=== PATIENT | male | born 1955 | race Caucasian/White ===

== ENCOUNTER → 2017-03-29 12:57 | Outpatient (CLI) | payer SELFPAY | PROVIDERS: Family Provider Family Medicine; PCP Family Medicine; Visit Provider Orthopaedic Surgery | DX: Z01.818 Encounter for other preprocedural examination (principal) ==

== ENCOUNTER → 2019-07-13 11:42 | Outpatient (CLI) | payer SELFPAY ==
[2019-07-13 15:12] LABS: Absolute Lymphocyte Count 1.76 X10^3/uL (0.83-4.51); Absolute Neutrophil Count 2.4 X10^3/uL (2.0-7.7); Basophil# 0.03 X10^3/uL; Basophil% 0.6 % (0-1); Eosinophils% 2.1 % (0-5); Hematocrit 51.5 % (40-54); Hemoglobin 16.6 g/dL (13.0-16.5); Lymphocyte # 1.76 X10^3/ul (4.0); Lymphocyte % 37.4 % (19-41); Mean Corp Hgb Conc 32.2 g/dL (32-36); Mean Corpuscular Hgb 28.5 pg (27.0-32.0); Mean Corpuscular Volume 88.3 fL (80-94); Mean Platelet Vol. 12.2 fl (6.2-12.0); Monocyte# 0.38 X10^3/uL; Monocyte% 8.1 % (0-10); NRBC Flagged by Analyzer 0 % (0-5); Neutrophil # 2.43 X10^3/uL (2.7-7.7); Neutrophil % 51.6 % (47-70); Platelet Count 185 K/mm3 (150-450); RBC Distribution Width CV 13.1 % (11.6-14.6); RBC Distribution Width SD 42.2 fl (35.1-43.9); Red Blood Count 5.83 M/mm3 (4.6-6.2); White Blood Count 4.7 K/mm3 (4.4-11.0)
[2019-07-13 15:24] LABS: ALB/GLOB Ratio 1.2 RATIO (0.9-2.4); AST(SGOT) 22 U/L (15-37); Alanine Aminotransfer ALT/SGPT 37 U/L (16-61); Albumin, Serum 4.1 g/dL (3.2-5.0); Alkaline Phosphatase 56 U/L (45-117); Anion Gap 8 (5-15); BUN 13 mg/dL (7-18); BUN/Creat Ratio 13.5 RATIO (10-20); Calcium,Total 9.1 mg/dL (8.5-10.1); Chloride 108 mmol/L (98-107); Cholesterol 190 mg/dL (200); Creatinine, Serum 0.96 mg/dL (0.70-1.30); EST Glomerular Filtration Rate 83 mL/min (>60); Est Glom Filt Rate - Afr Amer 101 mL/min (>60); Globulin 3.4 g/dL (2.2-4.2); Glucose 99 mg/dL (74-106); High Density Lipoprotein 38 mg/dL; Potassium 4.1 mmol/L (3.5-5.1); Protein, Total 7.5 g/dL (6.4-8.2); Sodium Level 142 mmol/L (136-145); Triglycerides 145 mg/dL; Uric Acid 7.7 mg/dL (3.5-7.2); Very Low Density Lipoprotein 29 mg/dL (5-40)
[2019-07-13 15:30] LABS: Hemoglobin A1c 5.5 % (3.8-5.6)
[2019-07-13 16:00] LABS: Vitamin D,25 Hydroxy 29.1 ng/mL
[2019-07-16 00:17] LABS: SAR-COV-2 IGG ANTIBODY Positive (Negative)
== END ==
PROVIDERS: PCP Family Medicine; Visit Provider Family Medicine
DX: U07.1 COVID-19 (principal); I25.10 Atherosclerotic heart disease of native coronary artery without angina pectoris; I10 Essential (primary) hypertension; K75.81 Nonalcoholic steatohepatitis (NASH); R73.01 Impaired fasting glucose
CPT/HCPCS: 80053; 80061; 82306; 83036; 84550; 85025; 86769; G2023

== ENCOUNTER → 2020-08-22 08:53 | Outpatient (CLI) | payer MEDICARE, BC, SELFPAY ==
[2017-03-08 09:44] VITALS: BMI 34.4
[2020-08-22 10:02] LABS: Absolute Lymphocyte Count 1.64 X10^3/uL (0.83-4.51); Absolute Neutrophil Count 3.2 X10^3/uL (2.0-7.7); Basophil# 0.03 X10^3/uL; Basophil% 0.6 % (0-1); Eosinophil# 0.09 X10^3/uL; Eosinophils% 1.7 % (0-5); Hematocrit 50.4 % (40-54); Hemoglobin 16.5 g/dL (13.0-16.5); Lymphocyte # 1.64 X10^3/ul (0.83-4.51); Lymphocyte % 30.4 % (19-41); Mean Corp Hgb Conc 32.7 g/dL (32-36); Mean Corpuscular Hgb 29.4 pg (27.0-32.0); Mean Corpuscular Volume 89.8 fL (80-94); Mean Platelet Vol. 11.4 fl (6.2-12.0); Monocyte# 0.44 X10^3/uL; Monocyte% 8.2 % (0-10); NRBC Flagged by Analyzer 0 % (0-5); Neutrophil # 3.18 X10^3/uL (2.7-7.7); Neutrophil % 58.9 % (47-70); Platelet Count 162 K/mm3 (150-450); RBC Distribution Width CV 12.8 % (11.6-14.6); RBC Distribution Width SD 42.5 fl (35.1-43.9); Red Blood Count 5.61 M/mm3 (4.6-6.2); White Blood Count 5.4 K/mm3 (4.4-11.0)
[2020-08-22 10:53] LABS: ALB/GLOB Ratio 1.3 RATIO (0.9-2.4); AST(SGOT) 26 U/L (15-37); Alanine Aminotransfer ALT/SGPT 38 U/L (16-61); Albumin, Serum 4.1 g/dL (3.2-5.0); Alkaline Phosphatase 61 U/L (45-117); Anion Gap 6 (5-15); BUN 18 mg/dL (7-18); BUN/Creat Ratio 17.3 RATIO (10-20); Calcium,Total 9.2 mg/dL (8.5-10.1); Chloride 109 mmol/L (98-107); Cholesterol 197 mg/dL (200); Creatinine, Serum 1.04 mg/dL (0.70-1.30); EST Glomerular Filtration Rate 76 mL/min (>60); Est Glom Filt Rate - Afr Amer 92 mL/min (>60); Globulin 3.2 g/dL (2.2-4.2); Glucose 101 mg/dL (74-106); High Density Lipoprotein 42 mg/dL; Potassium 4.1 mmol/L (3.5-5.1); Protein, Total 7.3 g/dL (6.4-8.2); Sodium Level 141 mmol/L (136-145); Triglycerides 188 mg/dL; Very Low Density Lipoprotein 38 mg/dL (5-40)
== END ==
PROVIDERS: PCP Family Medicine; Referring Provider Family Medicine; Visit Provider Family Medicine
DX: E78.5 Hyperlipidemia, unspecified (principal); I10 Essential (primary) hypertension; K75.81 Nonalcoholic steatohepatitis (NASH)
CPT/HCPCS: 36415; 80053; 80061; 85025

== ENCOUNTER 2022-06-23 07:40 | Outpatient (CLI) | payer MEDICARE, BC, SELFPAY ==
[2022-06-23 10:38] LABS: Absolute Lymphocyte Count 2.13 X10^3/uL (0.83-4.51); Absolute Neutrophil Count 2.7 X10^3/uL (2.0-7.7); Basophil# 0.05 X10^3/uL; Basophil% 0.9 % (0-1); Eosinophil# 0.18 X10^3/uL; Eosinophils% 3.2 % (0-5); Hematocrit 52.7 % (40-54); Hemoglobin 17.2 g/dL (13.0-16.5); Lymphocyte # 2.13 X10^3/ul (0.83-4.51); Lymphocyte % 38.3 % (19-41); Mean Corp Hgb Conc 32.6 g/dL (32-36); Mean Corpuscular Hgb 28.7 pg (27.0-32.0); Mean Corpuscular Volume 87.8 fL (80-94); Monocyte# 0.48 X10^3/uL; Monocyte% 8.6 % (0-10); NRBC Flagged by Analyzer 0 % (0-5); Neutrophil % 48.6 % (47-70); Platelet Count 178 K/mm3 (150-450); RBC Distribution Width CV 13.4 % (11.6-14.6); White Blood Count 5.6 K/mm3 (4.4-11.0)
[2022-06-23 11:15] LABS: ALB/GLOB Ratio 1.1 RATIO (0.9-2.4); AST(SGOT) 24 U/L (15-37); Alanine Aminotransfer ALT/SGPT 43 U/L (16-61); Albumin, Serum 3.9 g/dL (3.2-5.0); Alkaline Phosphatase 77 U/L (45-117); Anion Gap 10 (5-15); BUN 15 mg/dL (7-18); BUN/Creat Ratio 14.9 RATIO (10-20); Calcium,Total 9.7 mg/dL (8.5-10.1); Chloride 106 mmol/L (98-107); Cholesterol 196 mg/dL (200); Creatinine, Serum 1.01 mg/dL (0.70-1.30); EST Glomerular Filtration Rate 78 mL/min (>60); Est Glom Filt Rate - Afr Amer 95 mL/min (>60); Globulin 3.5 g/dL (2.2-4.2); Glucose 105 mg/dL (74-106); High Density Lipoprotein 40 mg/dL; PSA,Total- Diagnostic 0.95 ng/mL (0.0-4.0); Potassium 4.3 mmol/L (3.5-5.1); Protein, Total 7.4 g/dL (6.4-8.2); Sodium Level 139 mmol/L (136-145); Thyroid Stim Hormone (TSH) 2.87 uIU/mL (0.358-3.74); Triglycerides 179 mg/dL; Uric Acid 8.3 mg/dL (3.5-7.2); Very Low Density Lipoprotein 36 mg/dL (5-40)
== END 2022-06-23 23:59 | disposition home or self-care (01) ==
PROVIDERS: PCP Nurse Practitioner Family; Referring Provider Nurse Practitioner Family; Visit Provider Nurse Practitioner Family
DX: Z00.00 Encounter for general adult medical examination without abnormal findings (principal); Z13.29 Encounter for screening for other suspected endocrine disorder; I25.10 Atherosclerotic heart disease of native coronary artery without angina pectoris; E78.5 Hyperlipidemia, unspecified; E29.1 Testicular hypofunction; M10.9 Gout, unspecified; R73.01 Impaired fasting glucose; Z12.5 Encounter for screening for malignant neoplasm of prostate
CPT/HCPCS: 36415; 80053; 80061; 84153; 84403; 84443; 84550; 85025

== ENCOUNTER → 2022-11-17 | Outpatient (CLI) | payer MEDICARE, BC, SELFPAY ==
--- NOTE | 2022-11-17 07:39 | US_ITS ---
EXAM: US ABDOMEN LIMITED, RIGHT UPPER QUADRANT CLINICAL INDICATION: ABNORMAL labs TECHNIQUE: Real-time ultrasound of the right upper quadrant with image documentation. COMPARISON: No relevant prior studies available. FINDINGS: LIVER: Liver echogenicity appears increased suggesting diffuse parenchymal liver disease, likely steatosis. No intrahepatic biliary ductal dilation. GALLBLADDER: Normal. No shadowing gallstone. No gallbladder wall thickening is demonstrated. No pericholecystic fluid. Negative sonographic Ariza''s sign. COMMON BILE DUCT: Unremarkable as visualized. The proximal common bile duct is normal size. PANCREAS: Unremarkable as visualized. No focal abnormality is demonstrated in the pancreas. No pancreatic ductal dilatation. RIGHT KIDNEY: 3 cm septated right renal cyst. There is no hydronephrosis. No shadowing calculus. US/Abdomen Limited IMPRESSION: Parenchymal liver disease. Normal gallbladder. Electronically Signed: Antoine العراقي MD at 11:04 EDT ,
== END | disposition home or self-care (01) ==
LOC: US 07:39
PROVIDERS: PCP Nurse Practitioner Family; Referring Provider Nurse Practitioner Family; Visit Provider Nurse Practitioner Family
DX: R94.5 Abnormal results of liver function studies (principal); K75.81 Nonalcoholic steatohepatitis (NASH)
CPT/HCPCS: 76705

== ENCOUNTER → 2023-02-17 | Outpatient (CLI) | payer MEDICARE, BC, SELFPAY ==
--- OUTSIDE RECORDS SUMMARY | 2023-02-17 08:12 | XMS RPT_ITS | CCD ---
Author Name Unknown Address [address] [facility] [address] [place] [address] Organization [facility] Care Team Providers Care Network Support Analyst Name Role Phone Susie Khan Vic Unavailable Unavailable Kassandra RICHARDS, Jemma Boateng Unavailable [phone] Kassandra RICHARDS, Jemma Boateng Unavailable [phone] Kassandra RICHARDS, Jemma Boateng Unavailable [phone] Penny Bowling Y Unavailable Unavailable LAHORRA, PASCUAL A Unavailable Unavailable FRANKLYN MCCORMACK Unavailable Unavailable LAHORRA, PASCUAL A Unavailable Unavailable LAHORRA, PASCAUL A Unavailable Unavailable LAHORRA, PASCUAL A Unavailable Unavailable LAHORRA, PASCUAL A Unavailable Unavailable LAHORRA, PASCUAL A Unavailable Unavailable MEGAN, ISACC Unavailable Unavailable GINA BABIN (PERFORMANCE REPORTER) Unavailable Unavailable TAMIE, ATA MCGRAW Unavailable Unavailable MOAMA YANEZIN (PERFORMANCE REPORTER) Unavailable Unavailable MOGINA YANEZ (PERFORMANCE REPORTER) Unavailable Unavailable TAMIE, ATA MCGRAW Unavailable Unavailable LAHORRA, PASCUAL A Unavailable Unavailable FRANKLYN MCCORMACK Unavailable Unavailable TAMIE, ATA Unavailable Unavailable LAHORRA, PASCUAL A Unavailable Unavailable TAMIE, ATA Unavailable Unavailable TAMIE, ATA Unavailable Unavailable LAHORRA, PASCUAL A Unavailable Unavailable TAMIE, ATA Unavailable Unavailable LAHORRA, PASCUAL A Unavailable Unavailable KAKARALA, ARYAN Unavailable Unavailable TAMIE, ATA Unavailable Unavailable LAHORRA, PASCUAL A Unavailable Unavailable LAHORRA, PASCUAL A Unavailable Unavailable LAHORRA, PASCUAL A Unavailable Unavailable MEGAN, ISACC Unavailable Unavailable TAMIE, ATA Unavailable Unavailable TAMIE, ATA Unavailable Unavailable MOUCK, GINA E Unavailable Unavailable TAMIE, ATA Unavailable Unavailable TAMIE, ATA Unavailable Unavailable MOUCK, GINA E Unavailable Unavailable TAMIE, ATA Unavailable Unavailable MOUCK, GINA E Unavailable Unavailable Penny Bowling Unavailable Unavailable Susie Khan Unavailable Unavailable Susie Khan Unavailable Unavailable Tamie GUADARRAMA, Ata Mcgraw Primary Care Provider Franklyn Mccormack Unavailable Medications Completed/Discontinued Medications Medication Drug Class(es) Dates Sig (Normalized) Sig (Original) aspirin 81 mg delayed release oral tablet (9 sources) Nonsteroidal Anti-inflammatory Drug Start: 06-10-2016 take 1 tablet by mouth once daily aspirin, enteric coated (ASPIRIN, ENTERIC COATED) 81 mg EC tablet Take 81 mg by mouth once daily. 0 06/10/2016 Active Problems Active Problems Problem Classification Problem Date Documented Da te Episodic/Chronic Coronary atherosclerosis and other heart disease (18 sources) Coronary arteriosclerosis; Translations: [Atherosclerotic heart disease of [place] coronary artery without angina pectoris] Onset: 06-09-2016 06-10-2016 Chronic Disorders of lipid metabolism (9 sources) Hyperlipidemia; Translations: [Hyperlipidemia, unspecified] Onset: 06-10-2016 06-10-2016 Chronic Essential hypertension (2 sources) Essential (primary) hypertension; Translations: [Benign essential hypertension] Onset: 01-27-2008 01-27-2008 Chronic Other endocrine disorders (1 source) Testicular hypofunction; Translations: [Testicular hypofunction] Onset: 01-27-2008 01-27-2008 Chronic Other nutritional; endocrine; and metabolic disorders (12 sources) Body mass index (BMI) 33.0-33.9, adult; Translations: [Body mass index (BMI) 31.0-31.9, adult] Onset: 06-10-2016 Resolved: 08-02-2016 08-02-2016 Chronic Other nutritional; endocrine; and metabolic disorders (2 sources) Body mass index (BMI) 31.0-31.9, adult; Translations: [Body mass index (BMI) 31.0-31.9, adult] Onset: 08-02-2016 08-02-2016 Chronic Other nutritional; endocrine; and metabolic disorders (1 source) Obesity; Translations: [Obesity, unspecified] Onset: 01-27-2008 01-27-2008 Chronic Other nutritional; endocrine; and metabolic disorders (1 source) Obese class II; Translations: [Obesity, unspecified] Onset: 12-15-2018 12-15-2018 Chronic Unclassified (1 source) Other injury of unspecified body region, subsequent encounter; Translations: [Other injury of unspecified body region, subsequent encounter] Onset: 04-22-2017 Unclassified (1 source) Unknown / UNK(Unknown) Onset: 04-02-2017 Past or Other Problems Problem Classification Problem Date Documented Da te Episodic/Chronic Complications of surgical procedures or medical care (1 source) Other postprocedural complications and disorders of respiratory system, not elsewhere classified; Translations: [Other postprocedural complications and disorders of respiratory system, not elsewhere classified] Onset: 03-29-2017 Episodic Coronary atherosclerosis and other heart disease (2 sources) Presence of aortocoronary bypass graft; Translations: [Presence of aortocoronary bypass graft] Onset: 03-29-2017 Episodic Diabetes mellitus without complication (1 source) Impaired fasting glycemia; Translations: [Impaired fasting glucose] Onset: 11-10-2009 02-09-2021 Episodic Medical examination/evaluation (1 source) Encounter for other preprocedural examination; Translations: [Encounter for other preprocedural examination] Onset: 03-21-2017 Episodic Other and unspecified benign neoplasm (1 source) Polyp of colon; Translations: [Polyp of colon] Onset: 11-10-2009 02-09-2021 Episodic Other circulatory disease (8 sources) Elevated blood-pressure reading without diagnosis of hypertension; Translations: [Elevated blood-pressure reading, without diagnosis of hypertension] Onset: 10-19-2009 10-19-2009 Episodic Other connective tissue disease (1 source) Pain in left arm; Translations: [Pain in left arm] Onset: 12-28-2018 12-28-2018 Episodic Residual codes; unclassified (1 source) Family history of ischemic heart disease and other diseases of the circulatory system; Translations: [Family history of other cardiovascular diseases] Onset: 01-27-2008 01-27-2008 Episodic Residual codes; unclassified (1 source) Impairment; Translations: [Other general symptoms and signs] Onset: 12-28-2018 12-28-2018 Episodic Skin and subcutaneous tissue infections (8 sources) Abscess of lower limb; Translations: [Cutaneous abscess of limb, unspecified] Onset: 10-19-2009 10-19-2009 Episodic Sprains and strains (1 source) Rupture of tendon of biceps; Translations: [Strain of muscle, fascia and tendon of other parts of biceps, left arm, subsequent encounter] Onset: 09-11-2018 12-28-2018 Episodic Results Test Name Value Interpretation Reference Range Facil ity Vital Signs Date Time Vital Sign Value Performing Clinician Philomena altamirano 08-02-2016 14:07-0400 Heart rate 52 /min [facility] Work Phone: 08-02-2016 13:42-0400 BMI (Body Mass Index) 31.99 kg/m2 [facility]ie [facility] Work Phone: 08-02-2016 13:42-0400 BP Diastolic 78 mm[Hg] Susie Bill [facility] Work Phone: 08-02-2016 13:42-0400 BP Systolic 114 mm[Hg] Susie Bill [facility] Work Phone: 08-02-2016 13:42-0400 Height 177.8 cm [facility]iecathy [facility] Work Phone: 08-02-2016 13:42-0400 Pulse (Heart Rate) 52 /min [facility]iecathy [facility] Work Phone: 08-02-2016 13:42-0400 Respiratory Rate 16 /min [facility]iecathy [facility] Work Phone: 08-02-2016 13:42-0400 Weight 101.15 kg Susiecathy [facility] Work Phone: 06-10-2016 14:13-0400 Heart rate 60 /min Thryvejasbir [facility] Work Phone: 06-10-2016 13:42-0400 BMI (Body Mass Index) 33.28 kg/m2 Thryvejasbir [facility] Work Phone: 06-10-2016 13:42-0400 BP Diastolic 78 mm[Hg] Thryveumi DeFinis [facility] Work Phone: 06-10-2016 13:42-0400 BP Systolic 110 mm[Hg] Thryveumi DeFinis [facility] Work Phone: 06-10-2016 13:42-0400 Pulse (Heart Rate) 56 /min Harjasbir DeFinis [facility] Work Phone: 06-10-2016 13:42-0400 Respiratory Rate 16 /min Harumi DeFinis [facility] Work Phone: 06-10-2016 13:42-0400 Weight 105.24 kg Harjasbir DeFinis [facility] Work Phone: 10-19-2009 10:50-0400 Body Temperature 99.1 [degF] Harjasbir DeFinis [facility] Work Phone: 10-19-2009 10:50-0400 Height 177.8 cm Harjasbir DeFinis [facility] Work Phone: Encounters Encounter Date Encounter Type Care Provider Facility Start: 07-09-2021 Admission to [facility] Rudi Mix MD, PhD Work Phone: Orthopaedics Procedures Date Procedure Procedure Detail Performing Clinician Start: 04-02-2017 History of coronary artery bypass grafting S/P CABG x 5 Rudi Mix MD, PhD Work Phone: Start: 08-02-2016 End: 08-02-2016 Dietary management education, guidance, and counseling Susie Khan Start: 08-02-2016 End: 08-02-2016 Follow Up Appt 6 months Franklyn Mccormack MD Start: 08-02-2016 End: 08-02-2016 PFM Franklyn Mccormack MD Start: 06-10-2016 End: 06-10-2016 Dietary management education, guidance, and counseling Penny Kaitlynnelizabeth Start: 06-10-2016 End: 06-10-2016 Electrocardiogram, complete Franklyn Mccormack MD Start: 06-10-2016 End: 07-06-2016 Follow Up Appt 6 weeks Franklyn Mccormack MD Start: 06-10-2016 End: 07-06-2016 PFM Franklyn Mccormack MD Start: 05-06-2008 Colonoscopy Rudi taylor MD, PhD Work Phone: Plan of Treatment Date Care Activity Detail Author Start: 12-15-2021 DIABETES SCREEN DIABETES SCREEN [facility] Start: 10-15-2021 Influenza vaccination INFLUENZA (Season Ended) [facility] Start: 02-14-2021 ADVANCE DIRECTIVE DISCUSSION ADVANCE DIRECTIVE DISCUSSION [facility] Start: 2020 PNEUMOCOCCAL: 65+ (1 - PCV) PNEUMOCOCCAL: 65+ (1 - PCV) [facility] Start: 01-26-2018 Urine microalbumin profile DTAP,TDAP,TD (2 - Td or Tdap) [facility] Start: 08-02-2016 End: 08-02-2016 Appointment Appointment [facility] Work Phone: Start: 08-02-2016 End: 08-02-2016 Follow Up Appt 6 months Follow Up Appt 6 months [facility] Work Phone: Start: 08-02-2016 End: 08-02-2016 PFM PF [facility] Work Phone: Start: 06-10-2016 End: 06-10-2016 Electrocardiogram, complete EKG (In office) [facility] Work Phone: Start: 06-10-2016 End: 07-06-2016 Follow Up Appt 6 weeks Follow Up Appt 6 weeks [facility] Work Phone: Start: 06-10-2016 End: 07-06-2016 PFM [employer] [facility] Work Phone: Start: 11-10-2014 LIPID SCREEN LIPID SCREEN [facility] Start: 11-10-2014 PROSTATE CANCER SCREENING DISCUSSION PROSTATE CANCER SCREENING DISCUSSION [facility] Start: 05-07-2011 Colonoscopy COLONOSCOPY [facility] Start: 05-07-2011 COLORECTAL CANCER SCREENING COLORECTAL CANCER SCREENING [facility] Start: 01-12-2011 SHINGRIX VACCINE (2 of 3) SHINGRIX VACCINE (2 of 3) [facility] Start: 11-10-2010 Hepatitis B surface antibody level LDL CHOLESTEROL [facility] Start: 2000 COLOGUARD (FIT-DNA) COLOGUARD (FIT-DNA) [facility] Start: [address] COLONOGRAPHY [facility] Start: 2000 FECAL OCCULT BLOOD FECAL OCCULT BLOOD [facility] Start: 2000 SIGMOIDOSCOPY SIGMOIDOSCOPY [facility] Start: 1973 ANNUAL PCP TEAM CHRONIC DISEASE VISIT ANNUAL PCP TEAM CHRONIC DISEASE VISIT [facility] Start: 1973 BP CONTROLLED (<130/80) BP CONTROLLED (<130/80) [facility] Start: 1973 HEPATITIS C SCREENING HEPATITIS C SCREENING [facility] Start: 1967 Adult depression screening assessment DEPRESSION SCREENING [facility] Start: 1960 COVID-19 VACCINE (#1) COVID-19 VACCINE (#1) [facility] Immunizations Immunization Date Immunization Notes Care Provider Fa cili 12-31-2010 influenza virus vaccine, unspecified formulation Rudi Mix MD, PhD Work Phone: [facility] Work Phone: 11-17-2010 zoster vaccine, live Rudi rosado MD, PhD Work Phone: [facility] Work Phone: 11-02-2008 influenza virus vaccine, unspecified formulation Rudi Mix MD, PhD Work Phone: [facility] Work Phone: 01-27-2008 tetanus toxoid, redu severiano diphtheria toxoid, and acellular pertussis vaccine, adsorbed Rudi Mix MD, PhD Work Phone: [facility] Work Phone: Social History Date Type Detail [facility] Start: 12-15-2018 Alcohol intake Current drinke r of alcohol (finding) [facility] Start: 1955 Sex Assigned At Not on file 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 Napoleon Morris II 1955, 63 year old, male Procedure(s): Left distal biceps tendon reconstruction with tendon allograft and lacertus fibrosus tenotomy Pre-op Diagnosis: Left distal biceps tendon rupture Post-op Diagnosis: Same Surgeon(s) and Role: * Rudi Mix - Primary * Ignacio Sharma - Fellow No Additional Staff Anesthesia: General Tourniquet: See anaesthesia note Specimens: None EBL: 0 ml Implanted tissues or devices: None Findings: Please see dictated operative note for details Complications: None Incision/Procedure Start Time: 8:50 AM Incision Close/Procedure End Time: 10:41 AM Operative Indicati (more content not included)... Additional Source Comments (unrecognized sect ion and content) No Status Records FoundNo Status Records FoundNo Status Records Found INFORMATION SOURCE (unrecogn ized section and content) DATE CREATED AUTHOR AUTHOR'S ORGANIZ ATION 08/05/2017 [facility] DATE CREATED AUTHOR AUTHOR'S ORGANIZ ATION 04/18/2019 [facility] Source Comments (unrecognize d section and content) In the event this informatio n is protected by the Federal Confidentiality of Alcohol and Drug Abuse Patient Records regulations: The Federal rules restrict any use of the information to criminally investigate or prosecute any alcohol or drug abuse patient.[facility] Teams (unrecognized sec tion and content) FOR RECORDS PERTAINING TO PATIENTS WHO ARE OR HAVE BEEN ENROLLED IN A CHEMICAL DEPENDENCY/SUBSTANCEABUSE PROGRAM, SOME INFORMATION MAY BE OMITTED. This clinical summary was aggregated from multiple sources. Caution should be exercised in using it in the provision of clinical care. This summary normalizes information from multiple sources, and as a consequence, information in this document may materially change the coding, format and clinical context of patient data. In addition, data may be omitted in some cases. CLINICAL DECISIONS SHOULD BE BASED ON THE PRIMARY CLINICAL RECORDS. [facility] [employer] [facility]. provides no warranty or guarantee of the accuracy or completeness of information in this document.
[2023-02-17 11:09] LABS: AST(SGOT) 21 U/L (15-37); Alanine Aminotransfer ALT/SGPT 35 U/L (16-61); Albumin, Serum 3.9 g/dL (3.2-5.0); Alkaline Phosphatase 66 U/L (45-117); Anion Gap 7 (5-15); BUN 18 mg/dL (7-18); Bilirubin, Direct 0.15 mg/dL (0.00-0.30); Calcium,Total 9.3 mg/dL (8.5-10.1); Chloride 107 mmol/L (98-107); Cholesterol 213 mg/dL (200); Creatinine, Serum 1.06 mg/dL (0.70-1.30); EST Glomerular Filtration Rate 74 mL/min (>60); Est Glom Filt Rate - Afr Amer 89 mL/min (>60); Globulin 3.3 g/dL (2.2-4.2); Glucose 104 mg/dL (74-106); High Density Lipoprotein 38 mg/dL; Potassium 4.2 mmol/L (3.5-5.1); Protein, Total 7.2 g/dL (6.4-8.2); Sodium Level 139 mmol/L (136-145); Thyroid Stim Hormone (TSH) 2.36 uIU/mL (0.358-3.74); Triglycerides 212 mg/dL; Very Low Density Lipoprotein 42 mg/dL (5-40)
== END | disposition home or self-care (01) ==
LOC: MTLAB 07:45
PROVIDERS: PCP Nurse Practitioner Family; Referring Provider Internal Medicine Cardiovascular Disease; Visit Provider Internal Medicine Cardiovascular Disease
DX: I25.10 Atherosclerotic heart disease of native coronary artery without angina pectoris (principal); E78.00 Pure hypercholesterolemia, unspecified
CPT/HCPCS: 36415; 80048; 80061; 80076; 84443

== ENCOUNTER → 2023-03-04 | Outpatient (CLI) | payer MEDICARE, BC, SELFPAY ==
--- OUTSIDE RECORDS SUMMARY | 2023-03-04 10:00 | XMS RPT_ITS | CCD ---
Author Name Unknown Address [address] [facility] [address] [place] [address] Organization [facility] Care Team Providers Care Bobcat Operator Name Role Phone Susie Khan Vic Unavailable Unavailable Kassandra RICHARDS, Jemma Boateng Unavailable Kassandra RICHARDS, Jemma Boateng Unavailable Kassandra RICHARDS, Jemma Boateng Unavailable [phone] Penny Bowling Y Unavailable Unavailable LAHORRA, PASCUAL A Unavailable Unavailable FRANKLYN MCCORMACK Unavailable Unavailable LAHORRA, PASCUAL A Unavailable Unavailable LAHORRA, PASCUAL A Unavailable Unavailable LAHORRA, PASCUAL A Unavailable Unavailable LAHORRA, PASCUAL A Unavailable Unavailable LAHORRA, PASCUAL A Unavailable Unavailable MEGAN, ISACC Unavailable Unavailable GINA BABIN (PORT CRANE OPERATOR) Unavailable Unavailable TAMIE, ATA MCGRAW Unavailable Unavailable MOAMA YANEZIN (PORT CRANE OPERATOR) Unavailable Unavailable MOGINA YANEZ (PORT CRANE OPERATOR) Unavailable Unavailable TAMIE, ATA MCGRAW Unavailable Unavailable [...] Coronary arteriosclerosis; Translations: [Atherosclerotic heart disease of [place] coronary artery without angina pectoris] Onset: 06-09-2016 [...] (Body Mass Index) 31.99 kg/m2 Susie Hou [employer] Work Phone: 08-02-2016 13:42-0400 BP [...] Phone: 06-10-2016 14:13-0400 Heart rate 60 /min Expert [employer]jas[employer] [facility] Work Phone: 06-10-2016 13:42-0400 BMI (Body Mass Index) 33.28 kg/m2 [employer] Hou [employer] Work Phone: 06-10-2016 13:42-0400 BP Diastolic 78 mm[Hg] Expert Dynamicsumi DeFinis [facility] Work Phone: 06-10-2016 13:42-0400 BP Systolic 110 mm[Hg] Expert [employer]umi DeFinis [facility] Work Phone: 06-10-2016 13:42-0400 Pulse (Heart Rate) 56 /min Harjasbir DeFinis [facility] Work Phone: 06-10-2016 13:42-0400 Respiratory Rate 16 /min Harumi DeFinis [facility] Work Phone: 06-10-2016 13:42-0400 Weight 105.24 kg Harjasbir DeFin[employer] [facility] Work Phone: 10-19-2009 10:50-0400 Body Temperature 99.1 [degF] Harjasbir DeFinis [facility] Work Phone: 10-19-2009 10:50-0400 Height 177.8 cm Harjasbir DeFinis [facility] Work Phone: Encounters Encounter Date Encounter Type Care Provider Facility Start: 07-09-2021 Admission to [facility] Rudi Mix MD, PhD Work Phone: Orthopaedics [...] Author Start: 12-15-2021 DIABETES SCREEN DIABETES SCREEN [facility] Start: 10-15-2021 Influenza vaccination INFLUENZA (Season Ended) [place] [facility] Start: 02-14-2021 ADVANCE DIRECTIVE DISCUSSION ADVANCE DIRECTIVE DISCUSSION [facility] Start: 2020 PNEUMOCOCCAL: 65+ (1 - PCV) PNEUMOCOCCAL: 65+ (1 - PCV) [facility] Start: 01-26-2018 Urine microalbumin profile DTAP,TDAP,TD (2 - Td or Tdap) [facility] Start: 08-02-2016 End: 08-02-2016 Appointment Appointment [facility] Work Phone: Start: 08-02-2016 End: 08-02-2016 Follow Up Appt 6 months Follow Up Appt 6 months [facility] Work Phone: Start: 08-02-2016 End: 08-02-2016 PFM PF [facility] Work Phone: Start: 06-10-2016 End: 06-10-2016 Electrocardiogram, complete EKG (In office) [facility] Work Phone: Start: 06-10-2016 End: 07-06-2016 Follow Up Appt 6 weeks Follow Up Appt 6 weeks [facility] Work Phone: Start: 06-10-2016 End: 07-06-2016 PFM PFFilmLoop [facility] Work Phone: Start: 11-10-2014 LIPID SCREEN LIPID SCREEN [facility] Start: 11-10-2014 PROSTATE CANCER SCREENING DISCUSSION PROSTATE CANCER SCREENING DISCUSSION [facility] Start: 05-07-2011 Colonoscopy COLONOSCOPY [facility] Start: 05-07-2011 COLORECTAL CANCER SCREENING COLORECTAL CANCER SCREENING [facility] Start: 01-12-2011 SHINGRIX VACCINE (2 of 3) SHINGRIX VACCINE (2 of 3) [facility] Start: 11-10-2010 Hepatitis B surface antibody level LDL CHOLESTEROL [facility] Start: 2000 COLOGUARD (FIT-DNA) COLOGUARD (FIT-DNA) [facility] Start: [address] COLONOGRAPHY [facility] Start: 2000 FECAL OCCULT BLOOD FECAL OCCULT BLOOD [facility] Start: 2000 SIGMOIDOSCOPY SIGMOIDOSCOPY [facility] Start: 1973 ANNUAL PCP TEAM CHRONIC DISEASE VISIT ANNUAL PCP TEAM CHRONIC DISEASE VISIT [facility] Start: 1973 BP CONTROLLED (<130/80) BP CONTROLLED (<130/80) [facility] Start: 1973 HEPATITIS C SCREENING HEPATITIS C SCREENING [facility] Start: 1967 Adult depression screening assessment DEPRESSION SCREENING [facility] Start: 1960 COVID-19 VACCINE (#1) COVID-19 VACCINE (#1) [facility] Immunizations Immunization Date Immunization Notes Care Provider Fa cili 12-31-2010 influenza virus vaccine, unspecified formulation Rudi Mix MD, PhD Work Phone: [facility] Work Phone: 11-17-2010 zoster vaccine, live Rudi rosado MD, PhD Work Phone: [facility] Work Phone: 11-02-2008 influenza virus vaccine, unspecified formulation Rudi Mix MD, PhD Work Phone: [facility] Work Phone: 01-27-2008 tetanus toxoid, redu severiano diphtheria toxoid, and acellular pertussis vaccine, adsorbed Rudi Mix MD, PhD Work Phone: [facility] Work Phone: Social History Date Type Detail Facility [facility] Start: 12-15-2018 Alcohol intake Current drinke r of alcohol (finding) [facility] Start: 1955 Sex Assigned At Not on file C [facility] Medical Equipment Procedure Code Equipment Code Equipment Original Text Equipment Identifier Dates Button Endobutto n 4mm Titanium 12mm Fixation Arthroscopic Sterile Femur - [id number] Start: 12-20-2018 Graft Semitendin osus Tendon [id number] Soft Tissue Allograft Frozen - [id number] Start: 12-20-2018 Summary Purpose Family History No Family History Records FoundNo Family History Records FoundNo Family History Records Found Advance Directives Documents on File Type Date Recorded 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 Napoleon Morris II 1955, [...] DATE CREATED AUTHOR AUTHOR'S ORGANIZ ATION 08/05/2017 [facility] DATE CREATED AUTHOR AUTHOR'S ORGANIZ ATION 04/18/2019 [facility] Source Comments (unrecognize d section and content) In the event this informatio n is protected by the Federal Confidentiality of Alcohol and Drug Abuse Patient Records regulations: The Federal rules restrict any use of the information to criminally investigate or prosecute any alcohol or drug abuse patient.[facility] Teams (unrecognized sec tion and content) [...] BE BASED ON THE PRIMARY CLINICAL RECORDS. [facility] [employer] [facility]. provides no warranty or guarantee of the accuracy or completeness of information in this document.
[2023-03-04 12:31] LABS: Absolute Lymphocyte Count 1.83 X10^3/uL (0.83-4.51); Absolute Neutrophil Count 2.2 X10^3/uL (2.0-7.7); Basophil# 0.03 X10^3/uL; Basophil% 0.6 % (0-1); Eosinophil# 0.08 X10^3/uL; Eosinophils% 1.7 % (0-5); Hematocrit 51.1 % (40-54); Lymphocyte # 1.83 X10^3/ul (0.83-4.51); Lymphocyte % 39.4 % (19-41); Mean Corp Hgb Conc 33.3 g/dL (32-36); Mean Corpuscular Hgb 29.4 pg (27.0-32.0); Mean Corpuscular Volume 88.4 fL (80-94); Mean Platelet Vol. 11.4 fl (6.2-12.0); Monocyte# 0.45 X10^3/uL; Monocyte% 9.7 % (0-10); NRBC Flagged by Analyzer 0 % (0-5); Neutrophil # 2.24 X10^3/uL (2.7-7.7); Neutrophil % 48.2 % (47-70); Platelet Count 162 K/mm3 (150-450); RBC Distribution Width CV 13.1 % (11.6-14.6); RBC Distribution Width SD 42.3 fl (35.1-43.9); Red Blood Count 5.78 M/mm3 (4.6-6.2); White Blood Count 4.7 K/mm3 (4.4-11.0)
[2023-03-04 13:05] LABS: Vitamin B12 370 pg/mL (211-911); Vitamin D,25 Hydroxy 24.7 ng/mL
[2023-03-04 13:22] LABS: Ferritin 144 ng/mL (26-388); Iron 98 ug/dL (65-175)
== END | disposition home or self-care (01) ==
LOC: BFHLAB 09:39
PROVIDERS: PCP Nurse Practitioner Family; Visit Provider Nurse Practitioner Family
DX: D64.9 Anemia, unspecified (principal); E55.9 Vitamin D deficiency, unspecified
CPT/HCPCS: 36415; 82306; 82607; 82728; 83540; 85025

== ENCOUNTER → 2023-03-08 | Outpatient (CLI) | payer MEDICARE, BC, SELFPAY ==
--- NOTE | 2023-03-08 06:17 | ECHOD_ITS ---
Reason For Study: CAD Procedure This was a 2D Doppler, Color Flow transthoracic echocardiogram. Exam performed in department. Left Ventricle Normal LV size. Moderate concentric left ventricular hypertrophy. Left ventricular systolic function is normal. The estimated ejection fraction is 60 %. Stage 1 diastolic dysfunction. No regional wall motion abnormalities noted. Right Ventricle Normal RV size. Normal systolic function. Atria Normal left atrium. Normal right atrium. Mitral Valve Normal mitral valve. Mild (1+) eccentric mitral valve insufficiency. Tricuspid Valve Normal tricuspid valve. Aortic Valve Trisinus/trileaflet aortic valve. Mild focal aortic valve calcification. Mild (1+) aortic valve insufficiency. Pulmonic Valve Normal pulmonic valve. Great Vessels Mild to moderately dilated aortic root. The pulmonary artery is normal size. Normal inferior vena cava. Pericardium/Pleural No pericardial effusion. MMode/2D Measurements & Calculations LVIDd: 4.1 cm IVSd: 1.5 cm Ao root diam: 4.2 cm LVIDs: 2.7 cm LVPWd: 1.5 cm RVDd: 3.7 cm FS: 33.6 % LAV(MOD-bp): 48.9 ml LVAd ap4: 28.1 cm2 LVAd ap2: 30.0 cm2 LAV(MOD-bp) Indexed: 21.7 ml/m2 LVLd ap4: 8.8 cm LVLd ap2: 8.9 cm LAV(MOD-sp2): 50.6 ml EDV(MOD-sp4): 76.9 ml EDV(MOD-sp2): 83.7 ml LAV(MOD-sp4): 46.9 ml EDV(sp4-el): 75.7 ml EDV(sp2-el): 85.6 ml LVAs ap4: 16.9 cm2 LVAs ap2: 15.4 cm2 LVLs ap4: 7.8 cm LVLs ap2: 7.8 cm ESV(MOD-sp4): 32.5 ml ESV(MOD-sp2): 27.2 ml ESV(sp4-el): 31.0 ml ESV(sp2-el): 25.8 ml EF(MOD-sp4): 57.7 % EF(MOD-sp2): 67.5 % EF(sp4-el): 59.0 % SV(MOD-sp4): 44.4 ml SV(MOD-sp2): 56.4 ml SV(sp4-el): 44.7 ml LA dimension(2D): 5.2 cm LA A4 area: 17.9 cm2 RA A4 area: 16.2 cm2 TAPSE: 1.5 cm Time Measurements MV dec time: 0.22 sec Doppler Measurements & Calculations MV E max chito: 83.0 cm/sec Lat Peak E' Chito: 7.7 cm/sec Med Peak E' Chito: 4.9 cm/sec MV A max chito: 89.3 cm/sec E/E' lat: 10.8 E/E' med: 16.8 MV E/A: 0.93 MV dec slope: 381.4 cm/sec2 Ao V2 max: 134.7 cm/sec AI max chito: 469.2 cm/sec Ao max P.3 mmHg AI max P.1 mmHg Ao V2 mean: 96.0 cm/sec AI dec slope: 184.4 cm/sec2 Ao mean P.1 mmHg AI P1/2t: 745.2 msec Ao V2 VTI: 29.3 cm AV (velocity ratio): 1.00 LV V1 max: 126.5 cm/sec PA V2 max: 85.5 cm/sec LV V1 max P.4 mmHg LV V1 mean P.8 mmHg LV V1 mean: 91.7 cm/sec LV V1 VTI: 29.3 cm ECHO/Echo Complete Interpretation Summary Normal LV size. Moderate concentric left ventricular hypertrophy. Left ventricular systolic function is normal. The estimated ejection fraction is 60 %. Stage 1 diastolic dysfunction. Mild (1+) aortic valve insufficiency. Ordering Physician: Albert Mann Referring Physician: Alaina Galeano Performed By: Irina Jauregui RDCS
--- OUTSIDE RECORDS SUMMARY | 2023-03-08 06:19 | XMS RPT_ITS | CCD ---
Author Name Unknown Address [address] 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 Name Role Phone Susie Khan Vic Unavailable Unavailable Kassandra RICHARDS, Jemma Boateng Unavailable Kassandra RICHARDS, Jemma Boateng Unavailable Kassandra RICHARDS, Jemma Boateng Unavailable [phone] Penny Bowling Y Unavailable Unavailable LAHORRA, PASCUAL A Unavailable Unavailable FRANKLYN MCCORMACK Unavailable Unavailable LAHORRA, PASCUAL A Unavailable Unavailable LAHORRA, PASCUAL A Unavailable Unavailable LAHORRA, PASCUAL A Unavailable Unavailable LAHORRA, PASCUAL A Unavailable Unavailable LAHORRA, PASCUAL A Unavailable Unavailable MEGAN, ISACC Unavailable Unavailable GINA BABIN (AUTOMATIC SPINNING LATHE OPERATOR) Unavailable Unavailable TAMIE, ATA MCGRAW Unavailable Unavailable MOAMA YANEZIN (AUTOMATIC SPINNING LATHE OPERATOR) Unavailable Unavailable MOGINA YANEZ (AUTOMATIC SPINNING LATHE OPERATOR) Unavailable Unavailable TAMIE, ATA MCGRAW Unavailable [...] Tamie GUADARRAMA, Ata Mcgraw Primary Care Provider [phone] Franklyn Mccormack Unavailable Medications Completed/Discontinued Medications Medication [...] Coronary arteriosclerosis; Translations: [Atherosclerotic heart disease of [place] coronary artery without angina pectoris] Onset: 06-09-2016 [...] (Body Mass Index) 31.99 kg/m2 Susie Hou [employer] Work Phone: 08-02-2016 13:42-0400 BP [...] Phone: 06-10-2016 14:13-0400 Heart rate 60 /min Sp[employer]ir [employer] [facility] Work Phone: 06-10-2016 13:42-0400 BMI (Body Mass Index) 33.28 kg/m2 Spooljasbir H[employer] Work Phone: 06-10-2016 13:42-0400 BP Diastolic 78 mm[Hg] Spoolumi DeFinis [facility] Work Phone: 06-10-2016 13:42-0400 BP Systolic 110 mm[Hg] Spool[employer] DeFinis [facility] Work Phone: 06-10-2016 13:42-0400 Pulse (Heart Rate) 56 /min Harjasbir DeFinis [facility] Work Phone: 06-10-2016 13:42-0400 Respiratory Rate 16 /min Harumi DeFinis [facility] Work Phone: 06-10-2016 13:42-0400 Weight 105.24 kg Harjasbir DeFinis [facility] Work Phone: 10-19-2009 10:50-0400 Body Temperature 99.1 [degF] Harjasbir DeFinis [facility] Work Phone: 10-19-2009 10:50-0400 Height 177.8 cm Harjasbir DeFinis [facility] Work Phone: Encounters Encounter Date Encounter Type Care Provider Facility Start: 07-09-2021 Admission to [facility] Rudi Mix MD, PhD Work Phone: [...] Author Start: 12-15-2021 DIABETES SCREEN DIABETES SCREEN [facility] Start: 10-15-2021 Influenza vaccination INFLUENZA (Season Ended) [place] [facility] Start: 02-14-2021 ADVANCE DIRECTIVE DISCUSSION ADVANCE DIRECTIVE DISCUSSION [facility] Start: 2020 PNEUMOCOCCAL: 65+ (1 - PCV) PNEUMOCOCCAL: 65+ (1 - PCV) [facility] Start: 01-26-2018 Urine microalbumin profile DTAP,TDAP,TD (2 - Td or Tdap) [facility] Start: 08-02-2016 End: 08-02-2016 Appointment Appointment [facility] Work Phone: Start: 08-02-2016 End: 08-02-2016 Follow Up Appt 6 months Follow Up Appt 6 months [facility] Work Phone: Start: 08-02-2016 End: 08-02-2016 PFM PF [facility] Work Phone: Start: 06-10-2016 End: 06-10-2016 Electrocardiogram, complete EKG (In office) [facility] Work Phone: Start: 06-10-2016 End: 07-06-2016 Follow Up Appt 6 weeks Follow Up Appt 6 weeks [facility] Work Phone: Start: 06-10-2016 End: 07-06-2016 PFM [employer] [facility] Work Phone: Start: 11-10-2014 LIPID SCREEN LIPID SCREEN [facility] Start: 11-10-2014 PROSTATE CANCER SCREENING DISCUSSION PROSTATE CANCER SCREENING DISCUSSION [facility] Start: 05-07-2011 Colonoscopy COLONOSCOPY [facility] Start: 05-07-2011 COLORECTAL CANCER SCREENING COLORECTAL CANCER SCREENING [facility] Start: 01-12-2011 SHINGRIX VACCINE (2 of 3) SHINGRIX VACCINE (2 of 3) [facility] Start: 11-10-2010 Hepatitis B surface antibody level LDL CHOLESTEROL [facility] Start: 2000 COLOGUARD (FIT-DNA) COLOGUARD (FIT-DNA) [facility] Start: [address] COLONOGRAPHY [facility] Start: 2000 FECAL OCCULT BLOOD FECAL OCCULT BLOOD [facility] Start: 2000 SIGMOIDOSCOPY SIGMOIDOSCOPY [facility] Start: 1973 ANNUAL PCP TEAM CHRONIC DISEASE VISIT ANNUAL PCP TEAM CHRONIC DISEASE VISIT [facility] Start: 1973 BP CONTROLLED (<130/80) BP CONTROLLED (<130/80) [facility] Start: 1973 HEPATITIS C SCREENING HEPATITIS C SCREENING [facility] Start: 1967 Adult depression screening assessment DEPRESSION SCREENING [facility] Start: 1960 COVID-19 VACCINE (#1) COVID-19 VACCINE (#1) [facility] Immunizations Immunization Date Immunization Notes Care Provider Fa cili 12-31-2010 influenza virus vaccine, unspecified formulation Rudi Mix MD, PhD Work Phone: [facility] Work Phone: 11-17-2010 zoster vaccine, live Rudi rosado MD, PhD Work Phone: [facility] Work Phone: 11-02-2008 influenza virus vaccine, unspecified formulation Rudi Mix MD, PhD Work Phone: [facility] Work Phone: 01-27-2008 tetanus toxoid, redu severiano diphtheria toxoid, and acellular pertussis vaccine, adsorbed Rudi Mix MD, PhD Work Phone: [facility] Work Phone: Social History Date Type Detail Facility [facility] Start: 12-15-2018 Alcohol intake Current drinke r of alcohol (finding) [facility] Start: 1955 Sex Assigned At Not on file C [facility] Medical Equipment Procedure Code Equipment Code Equipment Original Text Equipment Identifier Dates Button Endobutto n 4mm Titanium 12mm Fixation Arthroscopic Sterile Femur - [id number] Start: 12-20-2018 Graft Semitendin osus Tendon [id number] Soft Tissue Allograft Frozen - [id number] Start: 12-20-2018 Summary Purpose Family History No Family History Records FoundNo Family History Records FoundNo Family History Records Found Advance Directives Documents on File Type Date Recorded 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 Napoleon Morris II 1955, [...] DATE CREATED AUTHOR AUTHOR'S ORGANIZ ATION 08/05/2017 [facility] DATE CREATED AUTHOR AUTHOR'S ORGANIZ ATION 04/18/2019 [facility] Source Comments (unrecognize d section and content) In the event this informatio n is protected by the Federal Confidentiality of Alcohol and Drug Abuse Patient Records regulations: The Federal rules restrict any use of the information to criminally investigate or prosecute any alcohol or drug abuse patient.[facility] Teams (unrecognized sec tion and content) [...] BE BASED ON THE PRIMARY CLINICAL RECORDS. [facility] [employer] [facility]. provides no warranty or guarantee of the accuracy or completeness of information in this document.
--- NOTE | 2023-03-08 17:26 | STRESSREP_ITS ---
Stress Test Report Exercise myocardial perfusion stress test. 68-year-old man with a history of coronary artery disease Stress protocol: Resting EKG demonstrates sinus bradycardia with a rate of 59 bpm resting blood pressure is 142/102 mmHg. The patient exercised according to the regular Eloy protocol for a total duration of 6 minutes and 45 seconds attaining a maximum heart rate of 129 bpm which was 84% of maximum predicted heart rate; the maximum workload was 9.2 metabolic equivalents. At rest there were no ST or T wave changes noted to suggest ischemia and at peak exercise upsloping ST changes only were noted which did not meet the criteria for ischemia. No clinical angina was noted the test was terminated due to the target heart rate being ach ieved/fatigue. The peak blood pressure was 230/122 mmHg. this was a hypertensive response to exercise with rate-pressure product was 22,600. Myocardial perfusion protocol. 14.6 mCi of technetium 99m sestamibi was injected at rest. The patient exercised according to regular Eloy protocol for total duration of 6 minutes and 45 seconds and at peak exercise 44.9 mCi of technetium 99m sestamibi was injected stress images were obtained stress and rest images were reconstructed in comparing the short axis vertical long and horizontal long axis. Gated images were also obtained. Perfusion SPECT analysis: Review of the stress images demonstrate normal uptake of tracer noted in all areas of the myocardium. There is however a small area in the anterolateral wall with a perfusion defect present. The resting images similarly demonstrate normal uptake of tracer noted in all areas of the myocardium except for the anterior lateral wall with a perfusion defect. The above is suggestive of previous anterolateral infarct. Gated SPECT analysis: The gated ejection fraction is 65%. Conclusion: Normal exercise myocardial perfusion stress test at a moderate to high workload Previous anterolateral infarct present Preserved ejection fraction.
== END | disposition home or self-care (01) ==
LOC: CVS 06:15
PROVIDERS: PCP Nurse Practitioner Family; Referring Provider Internal Medicine Cardiovascular Disease; Visit Provider Internal Medicine Cardiovascular Disease
DX: I25.10 Atherosclerotic heart disease of native coronary artery without angina pectoris (principal)
CPT/HCPCS: 78452; 93017; 93306; A9500; A4216

== ENCOUNTER → 2023-03-16 | Outpatient (CLI) | payer MEDICARE, BC, SELFPAY ==
--- NOTE | 2023-03-16 14:48 | CDU_ITS ---
Reason For Study: Carotid Artery Disease Rt. Velocities/BP Lt. Velocities/BP Prox CCA 102/9 cm/sec. Prox CCA 138/21 cm/sec. Mid CCA 109/14 cm/sec. Mid CCA 127/21 cm/sec. Dist CCA 95/12 cm/sec. Dist CCA 93/16 cm/sec. Prox ICA 54/11 cm/sec. Prox ICA 68/14 cm/sec. Mid ICA 66/20 cm/sec. Mid ICA 71/25 cm/sec. Dist ICA 78/23 cm/sec. Dist ICA 61/18 cm/sec. Rt. ICA/CCA = 0.7. Lt. ICA/CCA = 0.6. Prox ECA 93/9 cm/sec. Prox ECA 97/9 cm/sec. Rt. Vert. 44/12 cm/sec. Lt. Vert. 40/10 cm/sec. Right Extracranial There is heterogeneous, irregular atherosclerotic plaque noted in the right common carotid artery. There is homogeneous, smooth atherosclerotic plaque noted in the right internal carotid artery. There is no significant atherosclerotic plaque noted in the right external carotid artery. Antegrade flow is noted in the right vertebral artery. Left Extracranial There is heterogeneous, irregular atherosclerotic plaque noted in the left common carotid artery. There is intimal thickening but no significant atherosclerotic plaque noted in the left internal carotid artery. There is no significant atherosclerotic plaque noted in the left external carotid artery. Antegrade flow is noted in the left vertebral artery. Procedure Carotid Duplex 27999. This is a Carotid Duplex examination using B-mode, color flow and specral Doppler. Exam performed in department. VL/Carotid Duplex Ultrasound Interpretation Summary Mild (<50%) stenosis right extracranial internal carotid. Mild (<50%) stenosis left extracranial internal carotid. Patent and antegrade vertebrals bilaterally. Ordering Physician: Mark Barrios Referring Physician: Alaina Galeano Performed By: Alaina Barrios, RDCS, RVT
== END | disposition home or self-care (01) ==
LOC: CVS 14:47
PROVIDERS: PCP Nurse Practitioner Family; Referring Provider Nurse Practitioner Family; Visit Provider Nurse Practitioner Family
DX: I65.22 Occlusion and stenosis of left carotid artery (principal); I25.10 Atherosclerotic heart disease of native coronary artery without angina pectoris; E78.5 Hyperlipidemia, unspecified
CPT/HCPCS: 93880

== ENCOUNTER → 2024-04-06 | Outpatient (CLI) | payer MEDICARE, BC, SELFPAY ==
[2024-04-06 15:15] LABS: Absolute Lymphocyte Count 1.93 X10^3/uL (0.83-4.51); Absolute Neutrophil Count 2.8 X10^3/uL (2.0-7.7); Basophil# 0.04 X10^3/uL; Basophil% 0.7 % (0-1); Eosinophils% 1.9 % (0-5); Hematocrit 50.6 % (40-54); Hemoglobin 16.8 g/dL (13.0-16.5); Lymphocyte # 1.93 X10^3/ul (0.83-4.51); Lymphocyte % 35.7 % (19-41); Mean Corp Hgb Conc 33.2 g/dL (32-36); Mean Corpuscular Hgb 28.2 pg (27.0-32.0); Mean Corpuscular Volume 84.9 fL (80-94); Mean Platelet Vol. 11.4 fl (6.2-12.0); Monocyte# 0.48 X10^3/uL; Monocyte% 8.9 % (0-10); NRBC Flagged by Analyzer 0 % (0-5); Neutrophil # 2.83 X10^3/uL (2.7-7.7); Neutrophil % 52.4 % (47-70); Platelet Count 163 K/mm3 (150-450); RBC Distribution Width CV 13.6 % (11.6-14.6); RBC Distribution Width SD 42.4 fl (35.1-43.9); Red Blood Count 5.96 M/mm3 (4.6-6.2); White Blood Count 5.4 K/mm3 (4.4-11.0)
[2024-04-06 15:46] LABS: ALB/GLOB Ratio 1.2 RATIO (0.9-2.4); AST(SGOT) 23 U/L (15-37); Alanine Aminotransfer ALT/SGPT 38 U/L (16-61); Alkaline Phosphatase 65 U/L (45-117); Anion Gap 9 (5-15); BUN 15 mg/dL (7-18); BUN/Creat Ratio 17.3 RATIO (10-20); Calcium,Total 9.4 mg/dL (8.5-10.1); Chloride 108 mmol/L (98-107); Cholesterol 207 mg/dL (200); Creatinine, Serum 0.87 mg/dL (0.70-1.30); EST Glomerular Filtration Rate 93 mL/min (>60); Est Glom Filt Rate - Afr Amer 112 mL/min (>60); Globulin 3.2 g/dL (2.2-4.2); Glucose 101 mg/dL (74-106); High Density Lipoprotein 43 mg/dL; PSA,Total - Annual Screen 0.86 ng/mL (0.00-4.00); Potassium 3.9 mmol/L (3.5-5.1); Protein, Total 7.2 g/dL (6.4-8.2); Sodium Level 139 mmol/L (136-145); Triglycerides 154 mg/dL; Very Low Density Lipoprotein 31 mg/dL (5-40)
[2024-04-06 16:11] LABS: Hemoglobin A1c 5.7 % (3.8-5.6)
== END | disposition home or self-care (01) ==
LOC: BFHLAB 13:38
PROVIDERS: PCP Nurse Practitioner Family; Visit Provider Nurse Practitioner Family
DX: I10 Essential (primary) hypertension (principal); E78.5 Hyperlipidemia, unspecified; R73.01 Impaired fasting glucose; Z12.5 Encounter for screening for malignant neoplasm of prostate
CPT/HCPCS: 36415; 80053; 80061; 83036; 84153; 85025; G0103

== ENCOUNTER → 2024-04-25 | Outpatient (CLI) | payer MEDICARE, BC, SELFPAY ==
[2024-04-25 13:08] LABS: Uric Acid 7.5 mg/dL (3.5-7.2)
== END | disposition home or self-care (01) ==
LOC: LAB.FUTURE 10:08 → BFHLAB 10:08
PROVIDERS: PCP Nurse Practitioner Family; Visit Provider Nurse Practitioner Family
DX: M10.9 Gout, unspecified (principal); E66.9 Obesity, unspecified; R53.83 Other fatigue
CPT/HCPCS: 36415; 82533; 84403; 84550

== ENCOUNTER → 2024-07-12 13:52 | Outpatient (RCR) | payer MEDICARE, BC, SELFPAY | LOC: PT 13:52 | PROVIDERS: PCP Nurse Practitioner Family; Referring Provider Nurse Practitioner Family; Visit Provider Nurse Practitioner Family | DX: M25.511 Pain in right shoulder (principal) ==

== ENCOUNTER → 2024-09-13 | Outpatient (CLI) | payer MEDICARE, BC, SELFPAY ==
[2024-09-13 12:34] LABS: Immature Granulocytes Count 0.010 X10^3/uL (0.0-0.0); Mean Corp Hgb Conc 32.7 g/dL (32-36); Mean Corpuscular Volume 82.5 fL (80-94); Mean Platelet Vol. 11.7 fl (6.2-12.0); NRBC Flagged by Analyzer 0 % (0-5); Platelet Count 179 K/mm3 (150-450); RBC Distribution Width CV 15.9 % (11.6-14.6); RBC Distribution Width SD 43.2 fl (35.1-43.9); Red Blood Count 7.27 M/mm3 (4.6-6.2); White Blood Count 5.0 K/mm3 (4.4-11.0)
[2024-09-13 13:10] LABS: Cholesterol 182 mg/dL (<=200); Low Density Lipoprotein Calc. 126 mg/dL; PSA,Total- Diagnostic 1.17 ng/mL (0.00-4.00); Triglycerides 95 mg/dL; Very Low Density Lipoprotein 19 mg/dL (5-40); cholesterol:hdl ratio screen 4.88
[2024-09-13 13:40] LABS: Hematocrit 60.0 % (40-54)
[2024-09-13 13:44] LABS: Hemoglobin 19.6 g/dL (13.0-16.5)
[2024-09-19 11:08] LABS: Testosterone, % Free 4.53 % (1.50-4.20); Testosterone, Free 25.41 ng/dL (5.00-21.00)
== END | disposition home or self-care (01) ==
LOC: BFHLAB 10:41
PROVIDERS: PCP Nurse Practitioner Family; Visit Provider Nurse Practitioner Family
DX: Z51.81 Encounter for therapeutic drug level monitoring (principal); C61 Malignant neoplasm of prostate; Z79.890 Hormone replacement therapy; E29.1 Testicular hypofunction; E78.5 Hyperlipidemia, unspecified
CPT/HCPCS: 36415; 80061; 82670; 84153; 84402; 84403; 85025

== ENCOUNTER → 2025-01-14 | Outpatient (CLI) | payer MEDICARE, BC, SELFPAY ==
[2025-01-14 18:26] LABS: AST(SGOT) 32 U/L (<=37); Alanine Aminotransfer ALT/SGPT 27 U/L (<=46); Albumin, Serum 4.5 g/dL (3.4-4.8); Alkaline Phosphatase 54 U/L (40-129); Bilirubin, Direct 0.37 mg/dL (0.00-0.30); Globulin 2.6 g/dL (2.2-4.2)
== END | disposition home or self-care (01) ==
PROVIDERS: PCP Nurse Practitioner Family; Visit Provider Nurse Practitioner Family
DX: R74.8 Abnormal levels of other serum enzymes (principal)
CPT/HCPCS: 80076